=== PATIENT | female | born 1975 | race Caucasian/White ===

== ENCOUNTER 2016-03-21 17:53 | Emergency (ER) | payer OTHER ==
[2016-03-21 17:58] VITALS: BP 130/82
[2016-03-21 20:17] LABS: Hematocrit 37 % (35-47); Hemoglobin 12.1 g/dl (12.0-16.0); Mean Corpuscular HGB Conc 33 g/dl (31-36); Mean Corpuscular Hemoglobin 28 pg (27-31); Mean Corpuscular Volume 84 fL (80-97); Mean Platelet Volume 9 um3 (7.4-10.4); Red Blood Count 4.37 10^6/ul (4.0-5.4); Red Cell Distribution Width 15 % (10.5-15); White Blood Count 6.1 10^3/ul (3.5-10.8)
[2016-03-21 20:28] LABS: Albumin 4.4 g/dL (3.2-5.2); BUN/Creatinine Ratio 15.3 (8-20); Calcium 9.3 mg/dL (8.6-10.3); EGFR African American 81.3 (>60); EGFR Non-African American 63.2 (>60); Globulin 3.2 g/dL (2-4); Magnesium 2.2 mg/dL (1.9-2.7); Potassium 3.4 mmol/L (3.5-5.0); Total Bilirubin 0.4 mg/dL (0.2-1.0); Total Protein 7.6 g/dL (6.4-8.9)
--- NOTE | 2016-03-21 20:41 | ED ---
Sage Frederick Karl, scribed for Zia Gonzalez MD on 03/21/16 at 1946 . HPI Cardiac - HPI Summary HPI Summary: Pt is a 40 y/o female that presents to the ED c/o intermittent dysrhythmia. Pt reported that she first felt a "pause" in her heart beat 3 days ago and felt SOB with it. Pt stated that she is feeling what seems to be "fluttering in my chest" and thought she was having blood pressure issues initially, accompanied by diaphoresis and a near-syncopal sensation. Pt stated that today the episodes of "pauses" kept occurring so she decided to come to the ED. Pt denied CP. Hx: thyroid CA, thyroidectomy. - History of Current Complaint Chief Complaint: EDDysrhythmPalp Stated Complaint: HEART PALPITATIONS Time Seen by Provider: 03/21/16 19:38 Hx Obtained From: Patient Onset/Duration: Started Days Ago - 3, Atraumatic, Still Present Timing: Intermittent Initial Severity: Mild Current Severity: Mild Pain Intensity: 0 - CP Pain Scale Used: 0-10 Numeric Character: Fluttering Aggravating Factor(s): Nothing Alleviating Factor(s): Nothing Associated Signs and Symptoms: Positive: Shortness of Breath, Diaphoresis, Palpitations, Other: - near-syncopal sensation. Negative: Chest Pain - Allergy/Home Medications Allergies/Adverse Reactions: Allergies Allergy/AdvReac Type Severity Reaction Status Date / Time No Known Allergies Allergy Verified 03/21/16 17:58 PMH/Surg Hx/FS Hx/Imm Hx Endocrine/Hematology History: Reports: Hx Thyroid Disease Denies: Hx Diabetes Cardiovascular History: Denies: Hx Hypertension, Hx Pacemaker/ICD Respiratory History: Denies: Hx Asthma, Hx Chronic Obstructive Pulmonary Disease (COPD) GI History: Denies: Hx Ulcer History: Denies: Hx Renal Disease Musculoskeletal History: Denies: Hx Rheumatoid Arthritis, Hx Osteoporosis Sensory History: Denies: Hx Hearing Aid Psychiatric History: Denies: Hx Panic Disorder - Cancer History Cancer Type, Location and Year: thyroid ca 1998. thyroidectomy 1998 Hx Chemotherapy: No Hx Radiation Therapy: No - Surgical History Surgery Procedure, Year, and Place: thyroidectomy Infectious Disease History: No Infectious Disease History: Denies: Hx Hepatitis, Hx Human Immunodeficiency Virus (HIV), Traveled Outside the [place] in Last 30 Days - Family History Known Family History: Positive: Cardiac Disease - father, Other - cervical CA - mother - Social History Alcohol Use: Rare Substance Use Type: Reports: None Smoking Status (MU): Never Smoked Tobacco Review of Systems Positive: Skin Diaphoresis Eyes: Negative ENT: Negative Positive: Palpitations. Negative: Chest Pain Positive: Shortness Of Breath Gastrointestinal: Negative Genitourinary: Negative Musculoskeletal: Negative Skin: Negative Neurological: Other - near syncopal sensation Psychological: Normal All Other Systems Reviewed And Are Negative: Yes Physical Exam Triage Information Reviewed: Yes Vital Signs On Initial Exam: Initial Vitals Temp Pulse Resp BP Pulse Ox 98.5 F 76 16 130/82 99 03/21/16 17:55 03/21/16 17:55 03/21/16 17:55 03/21/16 17:55 03/21/16 17:55 Vital Signs Reviewed: Yes Appearance: Positive: No Pain Distress, Thin Skin: Positive: Warm Eyes: Positive: ILANA ENT: Positive: Hearing grossly normal Neck: Positive: Supple Respiratory/Lung Sounds: Positive: Clear to Auscultation, Breath Sounds Present Cardiovascular: Positive: RRR. Negative: Murmur Abdomen Description: Positive: Nontender, No Organomegaly, Soft Bowel Sounds: Positive: Present Musculoskeletal: Positive: Strength/ROM Intact Neurological: Positive: Sensory/Motor Intact, Alert, Oriented to Person Place, Time Diagnostics - Vital Signs Vital Signs Temp Pulse Resp BP Pulse Ox 03/21/16 17:55 98.5 F 76 16 130/82 99 - Laboratory Lab Results: Lab Results 03/21/16 03/21/16 Range/Units 19:54 19:54 WBC 6.1 (3.5-10.8) 10^3/ul RBC 4.37 (4.0-5.4) 10^6/ul Hgb 12.1 (12.0-16.0) g/dl Hct 37 (35-47) % MCV 84 (80-97) fL MCH 28 (27-31) pg MCHC 33 (31-36) g/dl RDW 15 (10.5-15) % Plt Count 304 (150-450) 10^3/ul MPV 9 (7.4-10.4) um3 Neut % (Auto) 60.9 (38-83) % Lymph % (Auto) 30.0 (25-47) % [place] % (Auto) 6.9 (1-9) % Eos % (Auto) 1.5 (0-6) % Baso % (Auto) 0.7 (0-2) % Absolute Neuts (auto) 3.7 (1.5-7.7) 10^3/ul Absolute Lymphs (auto) 1.8 (1.0-4.8) 10^3/ul Absolute Monos (auto) 0.4 (0-0.8) 10^3/ul Absolute Eos (auto) 0.1 (0-0.6) 10^3/ul Absolute Basos (auto) 0 (0-0.2) 10^3/ul Absolute Nucleated RBC 0.01 10^3/ul Nucleated RBC % 0.1 Sodium 136 (133-145) mmol/L Potassium 3.4 L (3.5-5.0) mmol/L Chloride 102 (101-111) mmol/L Carbon Dioxide 26 (22-32) mmol/L Anion Gap 8 (2-11) mmol/L BUN 15 (6-24) mg/dL Creatinine 0.98 H (0.51-0.95) mg/dL Est GFR ( Amer) 81.3 (>60) Est GFR (Non-Af Amer) 63.2 (>60) BUN/Creatinine Ratio 15.3 (8-20) Glucose 83 (70-100) mg/dL Calcium 9.3 (8.6-10.3) mg/dL Magnesium 2.2 (1.9-2.7) mg/dL Total Bilirubin 0.40 (0.2-1.0) mg/dL AST 19 (13-39) U/L ALT 15 (7-52) U/L Alkaline Phosphatase 46 (34-104) U/L Total Protein 7.6 (6.4-8.9) g/dL Albumin 4.4 (3.2-5.2) g/dL Globulin 3.2 (2-4) g/dL Albumin/Globulin Ratio 1.4 (1-3) TSH Pending Pertinent Lab Values Are: WNL Result Diagrams: 03/21/16 19:54 03/21/16 19:54 Lab Statement: Any lab studies that have been ordered have been reviewed, and results considered in the medical decision making process. - EKG 18:02 EKG Interpretation: NSR at 65 bpm, No STEMI Re-Evaluation - Re-Evaluation First Eval Change: Improved Disposition - Diagnoses Provider Diagnoses: Palpitations Discharge - Discharge Plan Condition: Stable Disposition: HOME Patient Education Materials: Palpitations (ED) Referrals: Usama Leach MD [Primary Care Provider] - Additional Instructions: Please follow up with your primary care provider. Return to the emergency department for changing or worsening symptoms. The documentation as recorded by the Sage veras Karl accurately reflects the service I personally performed and the decisions made by me, Zia Gonzalez MD.
[2016-03-21 20:57] LABS: TSH (Thyroid Stimulating Horm) 1.03 mcIU/mL (0.34-5.60)
== END 2016-03-21 21:52 | disposition home or self-care (01) ==
LOC: ED 17:53
DX: R00.2 Palpitations (principal); R06.02 Shortness of breath
CPT/HCPCS: 36415; 80053; 83735; 84443; 85025; 93005; 99282

== ENCOUNTER 2016-03-28 22:35 | Emergency (ER) | payer OTHER ==
[2016-03-29 00:26] LABS: Urine Bacteria Absent (Absent); Urine Bilirubin Negative (Negative); Urine Glucose Negative (Negative); Urine Nitrite Negative (Negative)
[2016-03-29 00:50] LABS: Albumin 4.4 g/dL (3.2-5.2); BUN/Creatinine Ratio 13.8 (8-20); Calcium 9.3 mg/dL (8.6-10.3); EGFR African American 102.7 (>60); EGFR Non-African American 79.9 (>60); Globulin 2.7 g/dL (2-4); Magnesium 2.2 mg/dL (1.9-2.7); Potassium 3.5 mmol/L (3.5-5.0); Total Bilirubin 0.4 mg/dL (0.2-1.0); Total Protein 7.1 g/dL (6.4-8.9)
[2016-03-29 00:51] LABS: Hematocrit 35 % (35-47); Hemoglobin 11.5 g/dl (12.0-16.0); Mean Corpuscular HGB Conc 33 g/dl (31-36); Mean Corpuscular Hemoglobin 28 pg (27-31); Mean Corpuscular Volume 83 fL (80-97); Mean Platelet Volume 9 um3 (7.4-10.4); Red Blood Count 4.16 10^6/ul (4.0-5.4); Red Cell Distribution Width 15 % (10.5-15); White Blood Count 5.4 10^3/ul (3.5-10.8)
[2016-03-29 01:05] LABS: TSH (Thyroid Stimulating Horm) 2.19 mcIU/mL (0.34-5.60)
[2016-03-29 01:15] LABS: Benzodiazepine Urine Screen None Detected (None Detect)
[2016-03-29 02:09] VITALS: BP 112/86
--- NOTE | 2016-04-11 00:06 | ED ---
Armin Frederick SooYoung, scribed for Zaid Centeno MD on 03/29/16 at 0011 . Palpitations / Dysrhythmia - HPI Summary HPI Summary: A 40 y/o F presents to ED with c/o multiple intermittent episodes of chest palpitations today and this week. Associated sx: fluttering in chest, lightheadedness, tightness in chest, lethargic, shaky. Mild CP with deep breaths. Pt was in ED last week for same sx. Pt was dx with Lyme dz today from blood test. She states she noticed an infection from a tick bite in summer 2015 , but Lyme test came back negative at the time. She had a swollen joint in January, and test came back negative again. She took her first dose of Doxy today. She notes that recently she's been spotting between menstrual cycles. Pt states a fluttering occurring in room, which doctor verified. PMHx: anxiety, depression. Non-smoker. She has not seen a block feeder. - History of Current Complaint Chief Complaint: EDDysrhythmPalp Time Seen by Provider: 03/28/16 23:54 Hx Obtained From: Patient Onset/Duration: Lasting Weeks - this week, Still Present Timing: Intermittent Episodes Lasting: Character: Fluttering Associated Signs & Symptoms: Lightheadedness, Chest Pain - Allergy/Home Medications Allergies/Adverse Reactions: Allergies Allergy/AdvReac Type Severity Reaction Status Date / Time No Known Allergies Allergy Verified 03/21/16 17:58 PMH/Surg Hx/FS Hx/Imm Hx Previously Healthy: No Endocrine/Hematology History: Reports: Hx Thyroid Disease Denies: Hx Diabetes Cardiovascular History: Denies: Hx Hypertension, Hx Pacemaker/ICD Respiratory History: Denies: Hx Asthma, Hx Chronic Obstructive Pulmonary Disease (COPD) GI History: Denies: Hx Ulcer History: Denies: Hx Renal Disease Musculoskeletal History: Denies: Hx Rheumatoid Arthritis, Hx Osteoporosis Sensory History: Denies: Hx Hearing Aid Psychiatric History: Denies: Hx Panic Disorder - Cancer History Cancer Type, Location and Year: thyroid ca 1998. thyroidectomy 1998 Hx Chemotherapy: No Hx Radiation Therapy: No - Surgical History Surgery Procedure, Year, and Place: thyroidectomy Infectious Disease History: No Infectious Disease History: Denies: Hx Hepatitis, Hx Human Immunodeficiency Virus (HIV), Traveled Outside the [place] in Last 30 Days - Family History Known Family History: Positive: Cardiac Disease - father, Other - cervical CA - mother - Social History Occupation: Unemployed Lives: With Family Alcohol Use: Rare Hx Substance Use: No Substance Use Type: Reports: None Hx Tobacco Use: No Smoking Status (MU): Never Smoked Tobacco Review of Systems Negative: Fever, Chills Negative: Erythema Negative: Sore Throat Positive: Palpitations - fluttering, Chest Pain - described as tightness, and CP with deep breaths Negative: Shortness Of Breath, Cough Negative: Abdominal Pain, Vomiting, Nausea Negative: dysuria, hematuria Negative: Myalgia, Edema Negative: Rash Neurological: Other - pos: lethargy; neg: dizziness Positive: Weakness - lightheadedness All Other Systems Reviewed And Are Negative: Yes Physical Exam - Summary Physical Exam Summary: Constitutional: Well-developed, Well-nourished, Alert. (-) Distressed Skin: Warm, Dry HENT: Normocephalic; Atraumatic Eyes: Conjunctiva normal Neck: Musculoskeletal ROM normal neck. (-) JVD, (-) Stridor, (-) Tracheal deviation Cardio: Rhythm regular, rate normal, Heart sounds normal; Intact distal pulses; The pedal pulses are 2+ and symmetric. Radial pulses are 2+ and symmetric. (-) Murmur Pulmonary/Chest wall: Effort normal. (-) Respiratory distress, (-) Wheezes, (-) Rales Abd: Soft, (-) Tenderness, (-) Distension, (-) Guarding, (-) Rebound Musculoskeletal: (-) Edema Lymph: (-) Cervical adenopathy Neuro: Alert, Oriented x3 Psych: Mood and affect Normal Triage Information Reviewed: Yes Vital Signs On Initial Exam: Initial Vitals Temp Pulse Resp BP Pulse Ox 98.3 F 85 18 126/87 98 03/28/16 22:39 03/28/16 22:39 03/28/16 22:39 03/28/16 22:39 03/28/16 22:39 Vital Signs Reviewed: Yes Diagnostics - Vital Signs Vital Signs Temp Pulse Resp BP Pulse Ox 03/28/16 22:39 98.3 F 85 18 126/87 98 - Laboratory Result Diagrams: 03/29/16 00:10 03/29/16 00:10 Lab Statement: Any lab studies that have been ordered have been reviewed, and results considered in the medical decision making process. - EKG 1 Cardiac Rate: NL - 80 bpm EKG Rhythm: Sinus Rhythm ST Segment: Normal Re-Evaluation - Re-Evaluation 1 Re-Evaluation Time: 02:02 Change: Improved Comment: Discussed results with pt. Pt stated she has been on a low-carb, low- sugar diet for past few weeks. Course/Dx - Diagnoses Provider Diagnoses: PVCs (premature ventricular contractions) Discharge - Discharge Plan Condition: Stable Disposition: HOME Patient Education Materials: Premature Ventricular Contractions (ED) Referrals: Usama Leach MD [Primary Care Provider] - Margarita Feliz MD [Medical Doctor] - 2 Days Additional Instructions: Follow up with Dr. Feliz, cardiology, within two days. Return to the emergency department for changing or worsening symptoms The documentation as recorded by the Armin veras SooYoung accurately reflects the service I personally performed and the decisions made by me, Zaid Centeno MD.
== END 2016-03-29 02:46 | disposition home or self-care (01) ==
LOC: ED 22:35
DX: I49.3 Ventricular premature depolarization (principal); R07.9 Chest pain, unspecified; R00.2 Palpitations
CPT/HCPCS: 36415; 80053; 80307; 81003; 81015; 83735; 84443; 85025; 93005; 99282

== ENCOUNTER 2017-09-09 15:54 | Emergency (ER) | payer OTHER ==
[2017-09-09 16:10] VITALS: BP 111/72
--- NOTE | 2017-09-09 16:50 | RAD ---
Indication: Right knee pain. 4 views of the right knee demonstrates no fracture. No other bone or joint abnormality is noted. IMPRESSION: No fracture of the right knee is noted.
--- NOTE | 2017-09-09 17:05 | UC ---
Sherri Frederick Jacob, scribed for Danica Dos Santos MD on 09/09/17 at 1633 . Knee Pain HPI - HPI Summary HPI Summary: Pt is a 42 y/o F w/ c/o right knee pain which radiates down her right calf and up her right thigh. She states she was playing [employer] ball 2 weeks ago when she fell on the ground, which was described as uneven and covered in tallish grass. Pt states that she rolled her left ankle, but this eventually healed and currently feels fine. Pt notes that knee pain began at the time of injury but worsened significantly when she pushed her right knee too far while at work some days later. On the injured knee, she notes no she had no ecchymosis of knee. She report difficulty bending the knee, and that edema is present. Pain has progressively worsened since onset. Per triage, pain is rated 3/10 and described as a tightness. Pt states knee pain is better in the morning and progressively worsens throughout the day. swelling also goes down during the day. No paresthesia. no weakness Pt states elevating and icing the leg relieved pain as well. Walking aggravates pain, particularly when, pulling off of the ground. No analgesia taken She notes no weakness and numbness in toes. Pt's medications reviewed this visit - History of Current Complaint Chief Complaint: UCLowerExtremity Stated Complaint: KNEE INJURY Time Seen by Provider: 09/09/17 16:07 Hx Obtained From: Patient Hx Last Menstrual Period: 08/29/17 ?: No Onset/Duration: Lasting Weeks - pain onset 2 weeks ago, Worse Since Severity Currently: Mild Pain Intensity: 3 Pain Scale Used: 0-10 Numeric - 3/10 Aggravating Factor(s): Movement - specifically notes when pulling leg off of the ground Alleviating Factor(s): Position - elevated right leg, Cold - icing Associated Signs And Symptoms: Positive: Swelling, Bruising. Negative: Numbness - denies numbness of right toes Able to Bear Weight: Yes - Allergies/Home Medications Allergies/Adverse Reactions: Allergies Allergy/AdvReac Type Severity Reaction Status Date / Time No Known Allergies Allergy Verified 09/09/17 16:02 PMH/Surg Hx/FS Hx/Imm Hx Previously Healthy: Yes Endocrine History: Hypothyroidism GI/ History: Other - pyelonephritis Other GI/ History: pyelonephritis - Surgical History Surgical History: Yes Surgery Procedure, Year, and Place: thyroidectomy 1998 - Family History Known Family History: Positive: Cardiac Disease - father, Other - cervical CA - mother - Social History Occupation: Employed Full-time Lives: With Family Alcohol Use: Rare Substance Use Type: None Substance Use Comment - Amount & Last Used: once in a while Smoking Status (MU): Never Smoked Tobacco Review of Systems Constitutional: Other - NEGATIVE: fever Musculoskeletal: Edema - right knee, Other: - POSITIVE: right knee pain radiating up/down leg, right knee ecchymosis, difficulty bending right knee NEGATIVE: right toe numbness/weakness All Other Systems Reviewed And Are Negative: Yes Physical Exam - Summary Physical Exam Summary: Vital Signs Reviewed: Yes A+Ox3, no distress Eyes: Conjunctiva Clear ENT: Hearing grossly normal neck: supple Respiratory: Positive: No respiratory distress, No accessory muscle use Cardiovascular: skin color reflect adequate perfusion 2+ DP, PT CBT < 2 sec Musculoskeletal Exam: LANCE x 4 without difficulty + SLE + flex.ext ankle + flex/ ext knee without pain. mild discomfort lateral inferior margin of knee neg anterior/posterior drawer Neurological: Positive: Alert, ambulatory without difficulty Psychological: Positive: Normal Response To Family Skin: Positive: no rash, no ecchymosis mild edema of knee, n edema of calf or ankle appreciated Triage Information Reviewed: Yes Vital Signs: Initial Vital Signs Temp 97.8 F 09/09/17 16:03 Pulse 74 09/09/17 16:03 Resp 18 09/09/17 16:03 BP 111/72 09/09/17 16:03 Pulse Ox 100 09/09/17 16:03 Diagnostics - Radiology Right Knee Xray Interpretation: No Acute Changes Radiology Interpretation Completed By: Radiologist - No fracture of the right knee is noted. This report was reviewed by physician. Knee Pain Course/Dx - Course Course Of Treatment: Patient with progressive knee pain on the right side status post fall approximately 2 weeks ago. Patient stated the time of the fall she had her left ankle. Patient states she was walking with a limp and progressively developed knee pain. Patient states the pain is from the lateral aspect of the knee extended down into the calf. Patient states she mostly notices it with extension of the foot. Patient states is better in the morning and gets worse as the day goes on. Patient has been treating with a splint and a cane. Patient continues to walk and states she's had a limp. Patient denies any paresthesias. On exam patient with mild discomfort lateral inferior aspect of the knee. No laxity. No edema. We'll check imaging and I expect to be normal. Continuation with patient's home splint. Ice, elevation, Motrin Tylenol. We'll await work no. Patient referred to sports medicine. Patient was previously seen by Dr. Shaver. Recommend he call morning for follow-up this week. Patient comfortable and agreeable to plan. Discussed with patient at about blood clots in the leg. No concern for this at this time. Patient is not on hormones does not smoke. Patient without any calf edema. Pain tracks to the lateral aspect of the knee joint line - Differential Dx/Diagnosis Provider Diagnoses: right knee sprain Discharge - Sign-Out/Discharge Documenting (check all that apply): Discharge/Admit/Transfer - Discharge Plan Condition: Stable Disposition: HOME Patient Education Materials: Knee Sprain (ED) Forms: *Work Release Referrals: [facility] [Provider Group] (call for an appointment ) Usama Leach MD [Primary Care Provider] - 2 Days Additional Instructions: -wear support wrap for comfort and support -apply ice (20 min at a time) every 2-3 hours for the next 2 days -use crutches until you are evaluated by the sports medicine -Elevate your leg - this will help with swelling and pain - Alternate ibuprofen (advil, Motrin) 600mg and tylenol every 3 hours for pain. Take with food. Do NOT take for more than 4-5 days -Contact the sports medicine office to schedule a follow up appointment. - Billing Disposition and Condition Condition: STABLE Disposition: Home The documentation as recorded by the Sherri veras Jacob accurately reflects the service I personally performed and the decisions made by , Danica Dos Santos MD.
== END 2017-09-09 17:05 | disposition home or self-care (01) ==
LOC: UCEAST 15:54
DX: S83.91XA Sprain of unspecified site of right knee, initial encounter (principal); W18.30XA Fall on same level, unspecified, initial encounter; Y93.89 Activity, other specified; Y92.89 Other specified places as the place of occurrence of the external cause
CPT/HCPCS: 99212; G0463

== ENCOUNTER → 2017-12-23 06:15 | Day surgery (SDC) | payer OTHER ==
[~2017-12-23 06:15] MED LIST: Acetaminophen IV 1GM/100ML * 100 ML ONE; Acetaminophen TAB* 325 MG PO PRN; Buffered Lidocaine 0.9% SYRIN* 5 ML/SYR SYRINGE INTRADERM ONE; Bupivacaine 0.25% SDV* 30 ML ONE; Dexamethasone IV* 4 MG/ML 1 ML (4 MG) ONE; EPHEDrine (Pressors)* 50 MG/ML VIAL ONE; HYDROmorphone INJ1* 1 MG/ML SYRINGE IV PRN; Heparin VIAL(*) 5000 UNITS/ML VIAL (FIVE THOUSAND) ONE; Ibuprofen TAB* 600 MG ONE; Ibuprofen TAB* 600 MG PO PRN; Lidocain 1% EPI 1:100,000 * 30 ML MDV ONE; Lidocaine 2% PF * 5 ML VIAL ONE; Metoclopramide IV* 5 MG/ML 2 ML VIAL IV PRN; Metoclopramide IV* 5 MG/ML 2 ML VIAL ONE; Midazolam* 1 MG/ML 2 ML VIAL (2 MG) ONE; Naloxone* 0.4 MG/ML 1 ML VIAL IV PRN; Ondansetron INJ* 2 MG/ML VIAL ONE; PROCHLORPERAZINE INJ 5 MG/ML 2 ML VIAL IV PRN; PROCHLORPERAZINE INJ 5 MG/ML 2 ML VIAL ONE; Phenylephrine IV* 40 MCG/ML 10 ML SYRINGE ONE; Propofol* 10 MG/ML 20 ML BTL IV PUSH ONE; Scopolamine 1.5 mg* PATCH ONE; ceFAZolin 2 GM PREMIX in ORs 2 GM/50 ML BAG IVPB ONE; fentaNYL* 50 MCG/ML 2 ML VIAL (100 MCG VIAL) ONE; oxyCODONE TAB* 5 MG TAB PO PRN
[2017-12-23] MEDS: fentaNYL* 50 MCG/ML 2 ML VIAL (100 MCG VIAL) IV PRN ×2 (12:22→12:30)
[2017-12-23 16:36] VITALS: BP 101/71
== END | disposition home or self-care (01) ==
LOC: OR 06:15
PROVIDERS: ATTEND Plastic Surgery
DX: N62 Hypertrophy of breast (principal); M54.2 Cervicalgia; M54.9 Dorsalgia, unspecified; Z85.850 Personal history of malignant neoplasm of thyroid; F32.9 Major depressive disorder, single episode, unspecified
CPT/HCPCS: 81025; 88305; A9270-GY; A9272; J0690; J0780; J1100; J1644; J2250; J2405; J2704; J2765; J3010